=== PATIENT | male | born 1975 | race Caucasian/White ===

== ENCOUNTER 2023-12-07 09:35 | Outpatient (CLI) | payer BC, SELFPAY ==
--- NOTE | 2023-12-07 10:02 | XR_ITS ---
WS: [id number] XR chest 2V* [id number] REASON FOR EXAM: CHEST PAIN FINDINGS: No comparison examination. The heart size is normal. There is prominence of the mediastinum mild widening to the right and increased density. The distal t rachea above the bifurcation appears to be somewhat narrowed on the AP view. On the lateral view ther e appears to be increased soft tissue density anteriorly in the mediastinum. No significant pulmonary parenchymal or pleural abnormality is noted. Eventration of the right hemidiaphragm. Mild degenerative spondylosis in the thoracic spine. XR/XR chest 2V* [id number] IMPRESSION: No acute chest abnormality Mediastinum appears somewhat prominent as above. If the patient is a smoker it would be reasonable, if clinically warranted, to obtain a CT scan of the chest with contrast.
[2023-12-07 10:05] LABS: Basophils # 0.1 10^3/uL (0.0-0.1); Eosinophils # 0.1 10^3/uL (0.0-0.8); Eosinophils % 1.4 %; Hematocrit 49.1 % (37-53); Lymphocytes # 2.8 10^3/uL (0.8-4.8); Lymphocytes % 28.2 %; Mean Corpuscular HGB Conc 33.8 g/dL (30-55); Mean Corpuscular Hemoglobin 30.5 pg (27-33); Mean Corpuscular Volume 90.3 fl (82-101); Monocytes # 1.3 10^3/uL (0.2-0.9); Monocytes % 12.7 %; Neutrophils # 5.53 10^3/uL (1.8-7.7); Neutrophils % 56.5 %; Nucleated Red Blood Cells % 0 %; Platelet Count 306 10^3/cmm (157-399); Red Blood Count 5.44 10^6/uL (3.85-5.65); Red Cell Distribution Width 13.2 % (12.1-15.1); White Blood Count 9.81 10^3/uL (3.29-11.43)
[2023-12-07 10:11] LABS: Erythrocyte Sedimentation Rate 14 mm/hr (0-10)
[2023-12-07 10:20] LABS: Albumin Level 3.9 g/dL (3.5-5.2); Alkaline Phosphatase 114 U/L (40-130); Anion Gap 13.3 (5-19); Aspartate Amino Transferase 13 U/L (0-40); Blood Urea Nitrogen 11 mg/dL (6-20); Calcium 8.9 mg/dL (8.5-10.5); Carbon Dioxide 29 mmol/L (22-29); Chloride 98 mmol/L (98-107); Globulin 3.5 g/dL (1.3-4.6); Glomerular Filtration Rate 104.1 mL/min (90-130); Glucose 233 mg/dL (65-115); Osmolality Calculated 289 mOsm/kg (285-295); Potassium 4.3 mmol/L (3.5-5.1); Sodium 136 mmol/L (136-145); Total Bilirubin 0.3 mg/dL (0.15-1.2); Total Protein 7.4 g/dL (6.6-8.7)
[2023-12-07 10:31] LABS: Alanine Aminotransferase 17 U/L (0-41)
[2023-12-08 14:59] LABS: Anti-streptolysin O 2559 IU/mL (<200)
[2023-12-09 13:15] LABS: Quantiferon Mitogen 9.13 IU/mL; Quantiferon Nil 0.02 IU/mL; Quantiferon Plus TB1 0.01 IU/mL; Quantiferon Plus TB2 0.02 IU/mL; Quantiferon TB Gold NEGATIVE (NEGATIVE)
== END 2023-12-07 09:36 | disposition home or self-care (01) ==
LOC: LAB 09:37 → RAD 10:00
PROVIDERS: Visit Provider Nurse Practitioner Family
DX: L52 Erythema nodosum (principal); Q79.1 Other congenital malformations of diaphragm; J98.59 Other diseases of mediastinum, not elsewhere classified; R50.9 Fever, unspecified
CPT/HCPCS: 36415; 71046; 80053; 85025; 85651; 86060; 86480; 87040

== ENCOUNTER 2023-12-13 05:49 | Outpatient (CLI) | payer BC, SELFPAY ==
--- NOTE | 2023-12-13 06:08 | CT_ITS ---
WS: [id number] CT chest w con* [id number] HISTORY: LOCALIZED SWELLING, MAS A non-calcified 4 mm solid nodule in the right upper lobe is indeterminate. S, AND LUMP, NECK TECHNIQUE: Axial imaging performed through the thorax. Coronal and sagittal reformats are submitted. All CT scans at [facility] use at least one of these dose optimization techniques: automated exposure control; mA and/or kV adjustment per patient size (includes targeted exams where dose is mat ched to clinical indication); or iterative reconstruction. CONTRAST: Omnipaque 350; 100 mL IV. DLP: 814.73 mGy.cm COMPARISON: Chest radiograph 12/07/2023 Lungs and central airway: 4 mm noncalcified nodule medial RIGHT upper lobe, image 21 of series 4. Mil d breathing motion artifact. No mass. Mild interstitial thickening and a few areas of groundglass att enuation. Pleura: Normal. No pleural effusion. Heart and pericardium: Normal size heart with no pericardial effusion. Mediastinum and saeed: There are a few small mediastinal and hilar lymph nodes. No adenopathy. Vessels: Very minimal atherosclerosis normal size aorta. Normal pulmonary artery size. Chest wall and lower neck: Mild gynecomastia. Upper abdomen: Moderate hepatic steatosis. Portal vein is patent. No adrenal mass. Osseous structures: Mild thoracic spondylosis. CT/CT chest w con* [id number] IMPRESSION: 1. No mediastinal or hilar adenopathy. 2. Mild interstitial thickening with groundglass attenuation likely related to smoking history. 3. 4 mm noncalcified nodule medial RIGHT upper lobe. Optional recommendations for follow-up chest CT at 12 months. See below. Indeterminate solid pulmonary nodule measuring 4 mm. In a high-risk patient wit h a solid nodule <6 mm, CT at 12 months is optional with stronger consideration if there is suspicious nodule morphology and/or upper lobe location. 4. Hepatic steatosis.
[2023-12-13] MEDS: iohexol 350 mg/mL 500 mL Btl (per mL) IV (06:27)
== END 2023-12-13 05:50 | disposition home or self-care (01) ==
LOC: RAD 05:53
PROVIDERS: Visit Provider Nurse Practitioner Family
DX: R91.1 Solitary pulmonary nodule (principal); K76.0 Fatty (change of) liver, not elsewhere classified
CPT/HCPCS: 71260